=== PATIENT | female | born 1995 | race African-American/Black ===

== ENCOUNTER 2024-06-05 12:57 | Emergency (ER) | payer OTHER, SELFPAY ==
[2024-06-05 13:08] VITALS: BP 119/62
[2024-06-05 13:55] LABS: % Basophils 0.9 % (0-2); % Eosinophils 2.1 % (0-6); % Lymphocytes 43.3 % (20.5-51.1); % Monocytes 8.8 % (1.7-9.3); % Neutrophils 44.9 % (42.2-75.2); Absolute Eosinophils 0.1 10^3/uL (0-0.7); Absolute Lymphocytes 1.9 10^3/uL (1.2-3.4); Absolute Monocytes 0.4 10^3/uL (0.1-0.6); Hematocrit 36.3 % (37.0-47.0); Hemoglobin 11.9 g/dL (12.0-16.0); Mean Corp Hgb Conc. 32.8 g/dL (33.0-37.0); Mean Corpuscular Hgb 29.9 pg (27.0-31.0); Mean Corpuscular Volume 91.2 fL (81.0-99.0); Mean Platelet Volume 10.4 fL (7.4-10.4); Nucleated Red Blood Cells % 0 %; Platelet Count 274 10^3/uL (130-400); Red Blood Cell Count 3.98 10^6/uL (4.20-5.40); Red Cell Dist. Width 13.8 % (11.5-14.5); White Blood Cell Count 4.3 10^3/uL (4.8-10.8)
[2024-06-05 14:11] LABS: Urine Albumin Negative (Neg - Trace); Urine Bilirubin Negative (Negative); Urine Character Slightly Cloudy (Clear); Urine Color Yellow; Urine Glucose Negative (Negative); Urine Ketone Negative (Negative); Urine Leukocyte 2+ (Negative); Urine Nitrite Negative (Negative); Urine Occult Blood 2+ (Negative); Urine Specific Gravity 1.015 (<1.030); Urine Urobilinogen Negative (Neg - 1+)
[2024-06-05 14:13] LABS: HCG, Serum Qualitative Screen Negative
[2024-06-05 14:16] LABS: ALT (SGPT) 20 U/L (0-35); AST (SGOT) 27 U/L (14-36); Alkaline Phosphatase 54 U/L (38-126); Blood Urea Nitrogen 11 mg/dl (7-17); Calcium 9.8 mg/dl (8.4-10.2); Carbon Dioxide 27 mmol/L (22-30); Chloride 108 mmol/L (98-107); Glucose 88 mg/dl (70-99); Lipase 100 U/L (23-300); Potassium 3.9 mmol/L (3.5-5.1); Sodium 141 mmol/L (135-145); Total Bilirubin 0.3 mg/dl (0.2-1.3); Total Protein 6.4 g/dl (6.3-8.2); eGFR > 60.00
[2024-06-05 14:43] LABS: TSH 1.65 uIU/ml (0.47-4.68)
[2024-06-05 15:02] LABS: Urine Squamous Cell >30 /LPF (Few)
[2024-06-05 15:03] LABS: Urine Amorphous Seen
[2024-06-05 15:04] LABS: Urine Red Blood Cell 0-2 /HPF (0-2)
[2024-06-05 15:05] LABS: Urine Bacteria Few (Negative)
--- NOTE | 2024-06-05 16:01 | ED.GENMED ---
Addendum entered and electronically signed by Corrine Porter PA-C 06/09/24 09:21:
Urine culture strep agalactiae at E. coli, low number of colonies.
I spoke with the patient who says she is still somewhat symptomatic. She also was having respiratory symptoms. It does mostly sound like she has a viral syndrome however I would choose Augmentin which could cover respiratory issues as well as this
urine. I sent it to the pharmacy. Patient has follow-up with her family doctor today
Original Note:
History of Present Illness
General
Chief Complaint: Back Pain
Time Seen by Provider: 06/05/24 16:01
History of Present Illness
History of Present Illness:
TIME OF INITIAL ENCOUNTER: 4:05 PM
HPI: Chronic LBP more on right ongoing for 9M one day when she woke up. Not getting better on its own. Had been on steroids 3M which helped at the time. Is on Tylenol 650mg tid - not helping. Has 'brain fog' for a year. 3M of metal taste in
mouth. Chronic bloating seen by GI in past. Some intermittent palpitations. Night sweats for past 6M, weight loss past 1M. She states that she does useMarijuana on most days
EXAM:
GENERAL: Well appearing in no distress
HEENT: Moist oral mucosa
CARDIOVASCULAR: No murmurs, normal heart rate, regular rhythm, No chest wall tenderness
PULMONARY: No respiratory distress, breath sounds are clear and equal
ABDOMEN: Soft with no peritoneal signs, no tenderness
NEUROLOGIC: Excellent strength all extremities, no coordination deficits
BACK: Borderline positive straight leg raise, decreased active range of motion of the thoracolumbar spine due to pain
PSYCHIATRIC: Appropriate mental status, normal insight and judgement, however she is tearful at times
EXTREMITIES: Nontender, no edema, moves all extremities equally
SKIN: No rash, no lesions
NUMBER AND COMPLEXITY OF PROBLEMS ADDRESSED AT THE ENCOUNTER
� Chronic conditions affecting care: No significant past medical history
� Acute Exacerbation and/or Progression of Chronic Illness: This is an acute problem
� Differential Diagnosis includes: Thyroid disease, anemia, sciatica, back pain, prolonged viral syndrome, cannabinoid hyperemesis syndrome
AMOUNT AND/OR COMPLEXITY OF DATA TO BE REVIEWED AND ANALYZED
� I performed an independent evaluation of and my interpretation is:
EKG:
CT: CT head shows no acute abnormality
X-rays:
Laboratory Studies: White count 4.3, hemoglobin 11.9, chemistries unremarkable, hCG negative, 2+ blood 2+ leukocyte esterase but greater than 30 squamous epithelial cells on urinalysis.
Other:
� Review of other/old records: No old records available for review
� Clinical information was obtained by an independent historian: None needed
� Prescriptions/Medications Considered but not given:
� Further testing considered but not performed:
RISK OF COMPLICATIONS AND/OR MORBIDITY OR MORTALITY OF PATIENT MANAGEMENT
� Social determinants of health affecting care: Lives at home, uses marijuana
� Discussion with other providers:
� Escalation of care including admission/observation vs risk of discharge considered: A repeat urinalysis was obtained as the initial appear to be contaminated. Repeat urinalysis shows 1+ leukocyte esterase with 0-2 squamous
epithelial cells and 6-10 white cells. Blood work is unremarkable. CT imaging of the brain is reassuring. Thyroid normal. We did also talk about the possibility of cannabinoid hyperemesis syndrome. Will give short course of steroid medication.
ANY OTHER UPDATES:
7:25 PM: I reassessed patient. Unclear etiology of patient's symptoms. Recommend that she follows up with neurology as well as primary care.
Phy Exam
Physical Exam
Physical Exam:
See HPI
Course
Orders/Labs/Results
Orders:
Orders
06/05/24 13:12
Test Result ONCE
06/05/24 13:28
Complete Blood Count/With Diff Urgent
Comprehensive Metabolic Panel Urgent
HCG, Serum Qualitative Screen Urgent
Lipase Urgent
TSH Urgent
Urinalysis Reflex To Culture Urgent
Date Specimen was Collected: 06/05/24
Time Specimen was Collected: 13:12
Urine Microscopic Reflex Cult Urgent
Urine Culture Urgent
SHAMA Source: U
Specimen Description:
Date Specimen was Collected: 06/05/24
Time Specimen was Collected: 13:12
06/05/24 16:50
CT Head W/o Iv Contrast Urgent
Comment:
Reason For Exam: OJEDA confusion weakness
Prednisone [Deltasone] 50 mg PO NOW STA
06/05/24 18:22
Urinalysis Reflex To Culture Urgent
Date Specimen was Collected: 06/05/24
Time Specimen was Collected: 18:21
Urine Microscopic Reflex Cult Urgent
Urine Culture Urgent
SHAMA Source: U
Specimen Description:
Date Specimen was Collected: 06/05/24
Time Specimen was Collected: 18:21
Abnormal Lab Results
06/05/24 06/05/24
13:28 18:22
WBC 4.3 L 10^3/uL
(4.8-10.8)
RBC 3.98 L 10^6/uL
(4.20-5.40)
Hgb 11.9 L g/dL
(12.0-16.0)
Hct 36.3 L %
(37.0-47.0)
MCHC 32.8 L g/dL
(33.0-37.0)
Chloride 108 H mmol/L
(98-107)
Ur Occult Blood Reflex 2+ A
(Negative)
Leukocyte Esterase Rfl 2+ A 1+ A
(Negative) (Negative)
Urine Bacteria (Reflex) Few A Moderate A
(Negative) (Negative)
06/05/24 13:28
06/05/24 13:28
Vital Signs
Initial and Last Documented VS:
Initial Vital Signs
Temp Pulse Resp BP Pulse Ox
36.7 C 108 16 119/62 98
06/05/24 13:08 06/05/24 13:08 06/05/24 13:08 06/05/24 13:08 06/05/24 13:08
Last Documented Vital Signs
Temp Pulse Resp BP Pulse Ox
36.7 C 76 18 103/86 98
06/05/24 13:08 06/05/24 18:05 06/05/24 18:05 06/05/24 18:05 06/05/24 18:05
*Critical Care Note
Total Time (30-74mins, 75-104mins- exclusive of procedures): Not Applicable
ED Attending Note
-
Portions of this chart may have been created with voice recognition software.� Occasional wrong word or��sound alike� substitutions may have occurred due to the inherent limitations of voice recognition software.
Discharge Plan
Departure
Patient Disposition: Home (Routine Discharge)
Date of Disposition: 06/05/24
Time of Disposition: 19:30
Patient with high blood pressure during this ER visit?: Yes
Discharge Problem:
Back pain
Instructions: Back Pain
Prescriptions:
New
prednisone 50 mg tablet
50 mg PO DAILY Qty: 4 0RF
Referrals:
Valerie Payne MD [Non-Admitting Privileges] - Next open appointment
Naa Shrestha MD, Resident [Family Provider] -
Activity Restrictions/Additional Instructions:
White blood cell count and hemoglobin level are just slightly low but not of any concern. Chemistry levels are normal. test is negative. Thyroid testing is normal. Liver and pancreas numbers are normal. Initial urinalysis showed
contamination however the repeat urinalysis did not show any obvious signs of infection�urine culture pending. CAT scan of the brain shows no acute abnormality. Given your ongoing concerns, I did give you the contact information for a local
neurologist, Dr. Payne. Steroids can sometimes keep people up at night, consider taking Benadryl to help sleep.
Interventions
Interventions:
*Risk Screen - Suicide Last Done: 06/05/24 13:08
*Neglect/Abuse Screening Last Done: 06/05/24 13:08
*ED- Fall Risk Assessment Last Done: 06/05/24 17:21
ED-Musculoskeletal Assessment Last Done: 06/05/24 18:26
Discharge Date and Time
Print Language: BULGARIAN
[2024-06-05] MEDS: DELTASONE 50 MG PO (17:07)
[2024-06-05 18:05] VITALS: BP 103/86
[2024-06-05 18:28] LABS: Urine Albumin Negative (Neg - Trace); Urine Bilirubin Negative (Negative); Urine Character Cloudy (Clear); Urine Color Yellow; Urine Glucose Negative (Negative); Urine Ketone Negative (Negative); Urine Leukocyte 1+ (Negative); Urine Nitrite Negative (Negative); Urine Occult Blood Negative (Negative); Urine Urobilinogen Negative (Neg - 1+)
[2024-06-05 18:36] LABS: Urine Amorphous Seen; Urine Red Blood Cell 0-2 /HPF (0-2); Urine Squamous Cell 0-2 /LPF (Few)
[2024-06-05 18:37] LABS: Urine Bacteria Moderate (Negative)
== END 2024-06-05 19:43 | disposition home or self-care (01) ==
LOC: EMR 12:57
PROVIDERS: EMERGENCY PHYSICIAN Emergency Medicine
DX: M54.50 Low back pain, unspecified (principal); R00.2 Palpitations; R61 Generalized hyperhidrosis; F12.90 Cannabis use, unspecified, uncomplicated
CPT/HCPCS: 99284; 70450; 80053; 81003; 81015; 83690; 84443; 84703; 85025; 87077; 87086; 87088; 87147; 87186